=== PATIENT | male | born 1950 | race Caucasian/White ===

== ENCOUNTER 2023-02-28 12:52 | Outpatient (CLI) | payer MEDICARE, SELFPAY ==
--- NOTE | 2023-02-28 13:00 | RT.EKG_ITS ---
APPROVED REPORT Exam: Resting ECG Reason for Exam: ASCVD Patient Location: O HR:93 bpm ECG Measurements Heart Rate 93 AXIS MO [id number] P [id number] QRSd 111 QRS -50 QT 380 T 46 QTc 473 Conclusion Atrial fibrillation...V-rate 72-121, irreg A-activity Left anterior fascicular block...axis(240,-40), init forces inf
== END 2023-02-28 12:53 | disposition home or self-care (01) ==
LOC: DI.CARD 13:01
PROVIDERS: PCP Neuromusculoskeletal Medicine & OMM; Referring Provider Neuromusculoskeletal Medicine & OMM; Visit Provider Internal Medicine Cardiovascular Disease
DX: I25.10 Atherosclerotic heart disease of native coronary artery without angina pectoris (principal)
CPT/HCPCS: 93010

== ENCOUNTER → 2023-02-28 12:52 | Outpatient (BNVA) | payer MEDICARE, SELFPAY | PROVIDERS: PCP Neuromusculoskeletal Medicine & OMM; Referring Provider Neuromusculoskeletal Medicine & OMM; Visit Provider Internal Medicine Cardiovascular Disease | DX: Z95.5 Presence of coronary angioplasty implant and graft (principal); I25.2 Old myocardial infarction; I25.10 Atherosclerotic heart disease of native coronary artery without angina pectoris | CPT/HCPCS: 93005; 99203 ==

== ENCOUNTER 2023-03-14 07:53 | Outpatient (CLI) | payer MEDICARE, SELFPAY ==
--- NOTE | 2023-03-14 07:45 | RT.EKG_ITS ---
APPROVED REPORT Exam: Resting ECG Reason for Exam: CP Patient Location: O HR:98 bpm ECG Measurements Heart Rate 98 AXIS IA [id number] P [id number] QRSd 106 QRS -61 QT 363 T 36 QTc 464 Conclusion Atrial fibrillation...V-rate 72-125, irreg A-activity LAD, consider left anterior fascicular block...axis(240,-40), S>R II III aVF
== END 2023-03-14 07:54 | disposition home or self-care (01) ==
LOC: DI.CARD 07:54
PROVIDERS: PCP Family Medicine; Visit Provider Internal Medicine Cardiovascular Disease
DX: I25.10 Atherosclerotic heart disease of native coronary artery without angina pectoris (principal); I48.20 Chronic atrial fibrillation, unspecified
CPT/HCPCS: 93010

== ENCOUNTER → 2023-03-14 13:49 | Outpatient (BNVA) | payer MEDICARE, SELFPAY | PROVIDERS: PCP Family Medicine; Referring Provider Family Medicine; Visit Provider Internal Medicine Cardiovascular Disease | DX: I25.2 Old myocardial infarction (principal); I10 Essential (primary) hypertension; Z79.01 Long term (current) use of anticoagulants; I25.10 Atherosclerotic heart disease of native coronary artery without angina pectoris; I48.20 Chronic atrial fibrillation, unspecified | CPT/HCPCS: 93005; 99214 ==

== ENCOUNTER → 2023-03-27 02:16 | Outpatient (CLI) | payer MEDICARE, SELFPAY ==
--- NOTE | 2023-03-27 07:15 | DI.NM_ITS ---
APPROVED REPORT Exam: Pharmacologic Patient Location: In-Patient Room/Bed: Stress Nurse: Juana Mancuso RN Ordering Provider:JORJE HARO, Contact Number: BMI: 29.14 Baseline Rhythm: Atrial Fibrillation Indications: CAD, Angina, ASCVD Medical History Medical History: Former smoker, NSTEMI, CAD, HTN, Afib, HLD, HTN, DM, CKD, ASCVD Cardiac Medications: Amlodipine, apixiban, prednisone, aspirin, albuterol, atorvastatin, vitD3, clopi dogrel, ferrous gluconate, isosorbide mononitrate, pantoprazole, furosemide, metoprolol succinate Allergies: Codeine Cardiac Risk Factors: CVD, HTN, HLD, DM, former smoker Previous Cardiac Procedures: DAVIAN to LAD Pretest Chest Pain Characteristics: none Exercise History: Sedentary Physical Disabilities: none Lung Sounds: Clear to auscultation Heart Sounds: Irregular Stress Test Details Test: Pharmacologic stress was paired with low level exercise. Nuclear Acquisition: Rest Tc-99m/Stress Tc-99m 1 day Rest Isotope: Tc-99m Sestamibi. Dose: 10 Date: 03/27/2023 Injection Time: 0845 Stress Isotope: Tc-99m Sestamibi. Dose: 30 Date: 03/27/2023 Injection Time: 1010 HR Resting HR Supine: 87 bpm Max Heart Rate (APMHR): 148.139201 bpm Resting HR Standin bpm Target HR (85% APMHR): 125.707767 bpm Max HR Achieved: 135 bpm % of APMHR: 91.22 Recovery HR: 102 bpm BP Resting BP Supine: 160/84 mmHg Resting BP Standin/70 mmHg Max BP: 160/84 mmHg Recovery BP: 160/84 mmHg ECG Resting ECG: Atrial Fibrillation Ectopy: none Stress ECG: Atrial Fibrillation ST Change: No significant ST segment changes noted Arrhythmia: None Recovery ECG: Atrial Fibrillation Recovery ST Change: No significant ST segment changes noted Recovery Arrhythmia: None Clinical Rate Pressure Product: 27106 Stress ECG Conclusion 1. Resting electrocardiogram showed atrial fibrillation, poor R wave progression 2. Patient underwent testing using a combination of pharmacologic stress with regadenoson and low-lev el exercise 3. Peak heart rate achieved was 91% of predicted for age 4. There was no electrocardiographic evidence of myocardial ischemia 5. Atrial fibrillation was present throughout 6. See MPI report Stress Test Summary STAGE HR BP SpO2 Symptoms NOTES Supine 87 160/84 Standing 105 134/70 1 min post Lexiscan injection 110 HARPER blood pressure at this time, unable to hear 3 min post Lexiscan injection 112 128/68 96 6 min post Lexiscan injection 102 160/78 Pharmacological testing was paired with low level exercise at 1.0MPH and 0% grade, Lexiscan was injec nusrat at 2:00 minutes into exercise. MPI Conclusion Myocardial perfusion is normal without ischemia or evidence of prior infarction Calculated EF is 37% but visually appears within the range of normal, no wall motion abnormalities Radiologist Interpretation Radiologist agrees with Cork Insulator's Interpretation. Radiologist Interpretation by: David Styles MD Interpretation Date/Time: 03/27/2023 18:11:32
[2023-03-27] MEDS: Regadenoson 0.4 MG/5 ML SYR IVP (10:15)
== END ==
PROVIDERS: PCP Family Medicine; Visit Provider Internal Medicine Cardiovascular Disease
DX: I25.10 Atherosclerotic heart disease of native coronary artery without angina pectoris (principal)
CPT/HCPCS: 78452; 93016; 93018; 93017; J2785

== ENCOUNTER → 2023-04-20 09:37 | Outpatient (BNVA) | payer MEDICARE, SELFPAY | PROVIDERS: PCP Family Medicine; Referring Provider Neuromusculoskeletal Medicine & OMM; Visit Provider Internal Medicine Interventional Cardiology | DX: I25.10 Atherosclerotic heart disease of native coronary artery without angina pectoris (principal); I48.20 Chronic atrial fibrillation, unspecified; I10 Essential (primary) hypertension | CPT/HCPCS: 99213 ==

== ENCOUNTER → 2023-06-19 09:32 | Outpatient (BNVA) | payer MEDICARE, SELFPAY | PROVIDERS: PCP Neuromusculoskeletal Medicine & OMM; Visit Provider Internal Medicine Cardiovascular Disease | DX: I48.20 Chronic atrial fibrillation, unspecified (principal); D64.9 Anemia, unspecified; I25.2 Old myocardial infarction | CPT/HCPCS: 99213 ==

== ENCOUNTER → 2023-07-24 13:21 | Outpatient (BNVA) | payer MEDICARE, SELFPAY | PROVIDERS: PCP Neuromusculoskeletal Medicine & OMM; Referring Provider Family Medicine; Visit Provider Student in an Organized Health Care Education/Training Program | DX: M17.11 Unilateral primary osteoarthritis, right knee (principal); M70.62 Trochanteric bursitis, left hip; M47.816 Spondylosis without myelopathy or radiculopathy, lumbar region | CPT/HCPCS: 20610; 99213; J1040 ==

== ENCOUNTER → 2023-08-22 08:23 | Outpatient (BNVA) | payer MEDICARE, SELFPAY | PROVIDERS: PCP Neuromusculoskeletal Medicine & OMM; Referring Provider Neuromusculoskeletal Medicine & OMM | DX: M17.11 Unilateral primary osteoarthritis, right knee (principal); M70.62 Trochanteric bursitis, left hip; M47.816 Spondylosis without myelopathy or radiculopathy, lumbar region | CPT/HCPCS: 20610; J7318 ==

== ENCOUNTER → 2023-10-05 11:38 | Outpatient (CLI) | payer MEDICARE, SELFPAY ==
--- NOTE | 2023-10-05 11:30 | DI.MRI_ITS ---
Exam(s) MR LOWER JOINT RT WO EXAM: MR LOWER JOINT RT WO CLINICAL HISTORY: right knee pain M17.11 OSTEOARTHRITIS RT KNEE. TECHNIQUE: Multiplanar multisequence MRI was performed. COMPARISON: CR XR KNEE 3V RT from 05/12/2023 FINDINGS: BONES: There is no fracture or contusion pattern. JOINTS: There is loss of the articular cartilage overlying the lateral femoral condyle and the latera l tibial plateau and the lateral femoral tibial joint. There is marrow edema seen in the lateral tib ial plateau and the lateral femoral condyle. There osteophytes arising from the lateral femoral tibi al joint. There is chondromalacia seen in the patella. There is a small amount of fluid in the join t space. The collection is multiloculated in the infrapatellar region. TENDONS: Extensor mechanism: Unremarkable. Medial retinaculum: Unremarkable. Lateral retinaculum: Unremarkable. Popliteus: Unremarkable. MUSCLES: There is moderate muscular fatty atrophy present. MENISCI: There is decrease in size of the body and posterior horn of the medial meniscus. This likel y represents chronic tear and degeneration. The lateral meniscus is unremarkable. SOFT TISSUES: There is a multiloculated heterogeneous fluid collection in the posterior lateral soft tissues. It is incompletely imaged on this examination. It measures at least 3.7 cm AP by 6.1 cm tr ansverse by at least 7.4 cm craniocaudad. There is edema seen in the soft tissues in the knee partic ularly posteriorly. A very tiny popliteal cyst is present. This does not communicate with the large r fluid collection. LIGAMENTS: Anterior Cruciate: Unremarkable. Posterior Cruciate: Unremarkable. Medial Collateral:Unremarkable. Lateral Collateral: Unremarkable. OTHER: IMPRESSION: 1. Degenerative changes seen in the knee particularly the lateral femoral tibial joint. 2. Decrease in size of the body and posterior horn of the medial meniscus. This likely reflects occ med physician ricky tear and degeneration. 3. Multiloculated 3.7 x 6.1 by at least 7.4 cm fluid collection in the posterolateral soft tissues. It is incompletely imaged on this examination. A follow-up examination of the lower extremity to inc lude the entire lesion without and with contrast is recommended for further evaluation. 4. No evidence of a ligament tear. DATA REPOSITORY:
== END ==
PROVIDERS: PCP Neuromusculoskeletal Medicine & OMM; Visit Provider Student in an Organized Health Care Education/Training Program
DX: M17.11 Unilateral primary osteoarthritis, right knee (principal)
CPT/HCPCS: 73721

== ENCOUNTER → 2023-10-17 10:36 | Outpatient (BNVA) | payer MEDICARE, SELFPAY | PROVIDERS: PCP Neuromusculoskeletal Medicine & OMM; Visit Provider Internal Medicine Cardiovascular Disease | DX: I48.20 Chronic atrial fibrillation, unspecified (principal); I25.10 Atherosclerotic heart disease of native coronary artery without angina pectoris | CPT/HCPCS: 99213 ==

== ENCOUNTER → 2023-10-19 09:54 | Outpatient (BNVA) | payer MEDICARE, SELFPAY | PROVIDERS: PCP Neuromusculoskeletal Medicine & OMM; Referring Provider Neuromusculoskeletal Medicine & OMM; Visit Provider Student in an Organized Health Care Education/Training Program | DX: M17.11 Unilateral primary osteoarthritis, right knee (principal) | CPT/HCPCS: 99213 ==

== ENCOUNTER 2023-11-29 14:27 | Outpatient (CLI) | payer MEDICARE, SELFPAY ==
--- NOTE | 2023-11-29 06:00 | DI.RAD_ITS ---
Exam(s) XR PAIN CLINIC LUMBAR SP 2V EXAM: XR PAIN CLINIC LUMBAR SP 2V CLINICAL HISTORY: DX:Lumbar Radiculopathy. TECHNIQUE: Fluoroscopy was provided for the referring physician for guidance with performing pain cl inic injection procedure. COMPARISON: No exams were available for comparison FINDINGS: Please see procedure note for details. Fluoro time: 19 seconds RADIATION DOSE DELIVERED: Devanr=5.94 mGy
[2023-11-29 14:34] VITALS: BP 122/69; PULSE 78; RESP 20; TEMP 36.6; O2SAT 96
[2023-11-29 15:03] VITALS: PULSE 88; RESP 15; O2SAT 96
[2023-11-29 15:10] VITALS: PULSE 93; RESP 16; O2SAT 99
[2023-11-29 15:13] VITALS: BP 155/90; PULSE 67
[2023-11-29] MEDS: methylPREDNISolone ACETATE 80 MG/ML VIAL IJ (15:18)
[2023-11-29] MEDS: Omnipaque 240 MG/ML 50 ML BTL IJ (15:18)
[2023-11-29] MEDS: Epidural Tray 1 EACH MC (15:19)
--- NOTE | 2023-12-04 08:41 | PDOC.PAIN ---
Date of service: 11/29/23 Time of Service: 15:20 Pain Managment Procedure Note Procedure Note Procedure Note: PROCEDURE NOTE LUMBAR EPIDURAL STEROID INJECTION Date of Service: November 29, 2023 Patient:Avtar Tanner? Provider: Cristobal Landa DO, MPH Avtar Elizondo has been referred to the [facility] for a lumbar epidural steroid injection. Pre-operative diagnosis: Lumbosacral Radiculopathy Post-operative diagnosis: Same Pre-Procedure Pain: VAS= 8 /10 Comments: He is holding the Eliquis and Plavix as his prescriber has instructed. Avtar was interviewed and the medical record was reviewed.? There were no medical, pharmacologic, radiographic or other structural contraindications to attempting fluoroscopically guided Lumbar epidural steroid injection.? Risks, potential side effects, indications, and potential benefits of the procedure were reviewed with Avtar.? Questions and concerns were addressed.? After it was clear that Avtar was fully informed about the procedure, the printed consent form was signed by the patient and myself.? Avtar was placed in the prone position on the fluoroscopy table and automated blood pressure cuff and pulse oximeter applied. The skin entry point for entering/approaching the epidural space for the lumbar epidural steroid injection was marked. Following thorough chlorhexadine preparation of the skin and draping and 1% lidocaine infiltration of the skin entry point and subcutaneous tissues, an 18 gauge Touhy needle was placed and advanced under fluoroscopic guidance and with loss of resistance technique into the L5-S1 epidural space. Needle tip placement and depth were aided and confirmed by fluoroscopy. There was no paresthesia or return of blood or CSF through the needle. 1 mls of Omnipaque 240 was injected with clear epidural spread confirmed with fluoroscopy. 80 mg of Depo-Medrol was? injected. This was followed by 1 ml of preservative-free normal saline to flush the steroid out of the needle. There was no unusual discomfort expressed by Avtar. The needle was withdrawn without difficulty. (49 mls of Omnipaque was wasted) Avtar was observed and was without hemodynamic, neurologic, or allergic reactions.? Fluoroscopic images were digitally archived. Avtar's vital signs were stable throughout the procedure and were as recorded in nursing records. Follow up plans and appointments were discussed with Avtar. Post procedure instruction was given as documented in nursing records and having met discharge criteria Avtar was discharged from the [facility]. COMMENTS: No apparent complications. Post-procedure pain: VAS= 1/10. Avtar to contact [facility] as needed. If at least 50% improvement in pain and/or function for at least 3 months is achieved, this procedure can be repeated. I personally performed this entire procedure. CRISTOBAL LANDA DO, MPH ABPMR-subspecialty board certification in Pain Medicine [facility]
== END 2023-11-29 14:28 | disposition home or self-care (01) ==
LOC: PC 14:27
PROVIDERS: PCP Neuromusculoskeletal Medicine & OMM; Visit Provider Preventive Medicine Occupational Medicine
DX: M54.16 Radiculopathy, lumbar region (principal); M54.50 Low back pain, unspecified
CPT/HCPCS: 62323; 72100; J1010; Q9967

== ENCOUNTER 2024-01-05 10:19 | Outpatient (CLI) | payer MEDICARE, SELFPAY ==
[2024-01-05 10:25] VITALS: BP 125/87; PULSE 68; RESP 18; TEMP 36.7; O2SAT 97
[2024-01-05 10:59] VITALS: O2SAT 95
[2024-01-05 11:00] VITALS: O2SAT 97
[2024-01-05 11:10] VITALS: O2SAT 98
--- NOTE | 2024-01-05 11:16 | PDOC.PAIN ---
Date of service: 01/05/24 Time of Service: 11:16 Pain Managment Procedure Note Procedure Note Procedure Note: PROCEDURE NOTE RIGHT GENICULAR NERVE BLOCKS Date of Service: January 05, 2024 Patient: Avtar Elizondo Provider: Cristobal Cook DO, MPH Avtar Eilzondo has been referred to the [facility] for Right genicular nerve block. Pre-operative diagnosis: Pain in right knee M25.561 Post-operative diagnosis: Same Pre-Procedure Pain: VAS=8/10 COMMENTS: I previously evaluated him in the office. PROCEDURE: 1. Block of the Superolateral genicular branch from the vastus lateralis 2. Block of the Superomedial genicular branch from the vastus medialis 3. Block of the Inferomedial genicular branch from the saphenous nerve 4. Block of the Terminal branch of the nerve vastus intermedius Avtar was interviewed and the medical record reviewed. There were no medical, pharmacologic, radiographic or other structural contraindications to attempting fluoroscopically guided Right genicular nerve block. Risks and potential side effects as well as potential benefit of the procedure were reviewed with Avtar Elizondo , and the patient's voiced concerns were addressed. After I believed that the patient was completely informed, the printed consent form was signed. Standard time-out procedure was performed. After a thorough Chlorhexadine preparation of the skin and draping the skin entry points for approaching Right superolateral genicular nerve, the superomedial genicular nerve, nerve of the vastus intermedius and the inferomedial genicular was identified under the most advantageous fluoroscopic view and marked. Next, 3.5 25G spinal needle was advanced to os at the location of the specific nerve root using fluoroscopic guidance. Next 0.5 cc of 0.5% Bupivacain was injected at each site. There was no unusual discomfort expressed by Avtar. The needles were withdrawn without difficulty. Avtar was observed and was without hemodynamic, neurologic, or allergic reactions.? Fluoroscopic images were digitally archived. Avtar's vital signs were stable throughout the procedure and were as recorded in the docflowsheet by the nursing staff. If given, dosages of intravenous drugs for anxiolysis and analgesia were documented in MAR. Follow up plans and appointments were discussed. Avtar was instructed to keep careful note of how the usual pain was modified by these injections. Specifically, Avtar was asked to keep a pain diary for the next 4 hours using a numeric pain scale of 0-10 and report these results. Post procedure instruction was given as documented in nursing documentation and having met discharge criteria, Avtar was discharged from the [facility]. COMMENTS: No apparent complications. Post-procedure pain: VAS= 0/10. Avtar will call back with 0-4 hour post-procedure pain scores. I personally completed the entire procedure. CRISTOBAL COOK DO, MPH ABPM&R - Subspecialty board certification in Pain Medicine [facility]
[2024-01-05] MEDS: Omnipaque 240 MG/ML 50 ML BTL IJ (11:24)
[2024-01-05] MEDS: Bupivacaine 0.5% Pres-Free 10 ML VIAL IJ (11:24)
--- NOTE | 2024-01-05 11:24 | DI.RAD_ITS ---
Exam(s) XR PAIN CLINIC FLUORO JOINT IN EXAM: XR PAIN CLINIC FLUORO JOINT IN CLINICAL HISTORY: Dx: Osteoarthritis of the knee TECHNIQUE: 2D and realtime digital imaging was performed. CONTRAST MATERIAL: Refer to procedure report. COMPARISON: No exams were available for comparison FINDINGS: Fluoroscopy was provided for Dr. Cook during the performance of a right genicular nerve block. Plea se refer to the procedure report for complete details. Ka,r=2.68 mGy IMPRESSION: RADIATION DOSE DELIVERED: 0.0 [id number] 0
[2024-01-05] MEDS: Nerve Block Tray 1 EACH MC (11:25)
== END 2024-01-05 10:20 | disposition home or self-care (01) ==
LOC: PC 10:19
PROVIDERS: PCP Neuromusculoskeletal Medicine & OMM; Visit Provider Preventive Medicine Occupational Medicine
DX: M25.561 Pain in right knee (principal)
CPT/HCPCS: 64454; 77002; J0665; Q9967

== ENCOUNTER 2024-02-08 10:02 | Outpatient (CLI) | payer MEDICARE, SELFPAY ==
[2024-02-08] VITALS (9 sets, daily range): BP systolic 103–159; BP diastolic 58–99; PULSE 64–95; RESP 9–20; TEMP 36.7; O2SAT 97–100
--- NOTE | 2024-02-08 06:00 | DI.RAD_ITS ---
Exam(s) XR PAIN CLINIC FLUORO JOINT IN EXAM: XR PAIN CLINIC FLUORO JOINT IN CLINICAL HISTORY: DX: Osteoarthritis of the Right Knee TECHNIQUE: 2D and realtime digital imaging was performed. CONTRAST MATERIAL: Refer to procedure report. COMPARISON: No exams were available for comparison FINDINGS: Fluoroscopy was provided for Dr. Cook during the performance of a right genicular radiofrequency abl ation. Please refer to the procedure report for complete details. Ka,r=3.14 mGy IMPRESSION: RADIATION DOSE DELIVERED: 0.0 0.0 0
--- NOTE | 2024-02-08 10:52 | PDOC.PAIN_ITS ---
Date of service: 02/08/24 Time of Service: 10:52 Pain Managment Procedure Note Procedure Note Procedure Note: PROCEDURE NOTE RIGHT GENICULAR NERVE RADIOFREQUENCY ABLATION Date of Service: February 08, 2024 Patient: Avtar Elizondo Provider: Janes Landa DO, MPH Avtar Elizondo has been referred to the [facility] for Right genicular nerve radiofrequency ablation with the [employer] machine. Pre-operative diagnosis: Pain in right knee M25.561 Post-operative diagnosis: Same Pre-Procedure Pain: VAS=6/10 Comments: Previous genicular nerve blocks to the Right knee. PROCEDURE: 1. Superolateral genicular branch from the vastus lateralis 2. Superomedial genicular branch from the vastus medialis 3. Inferomedial genicular branch from the saphenous nerve 4. Terminal branch of the nerve vastus intermedius Avtar was interviewed and the medical record reviewed. There were no medical, pharmacologic, radiographic or other structural contraindications to attempting fluoroscopically guided Right genicular nerve radiofrequency ablation. Risks and potential side effects as well as potential benefit of the procedure were reviewed with Avtar Elizondo , and the patient's voiced concerns were addressed. After I believed that the patient was completely informed, the printed consent form was signed. Standard time-out procedure was performed. Avtar Elizondo was brought into brought to the procedure room and placed on the fluoroscopy table in a comfortable supine position and automated blood pressure cuff and pulse oximeter applied. A grounding pad was placed on the right ankle. The place for needle placement was obtained by manual palpation with radiographic confirmation. The skin entry points for approaching Right superolateral genicular nerve, the superomedial genicular nerve, nerve of the vastus intermedius and the inferomedial genicular was identified under the most advantageous fluoroscopic view and marked. Following thorough Chlorhexadine preparation of the skin and draping, 1% lidocaine infiltration of the skin entry point and subcutaneous tissues was accomplished using a 1.5 25G needle. Next, the 17G 50 mm radi ofrequency cannula needle with a 4mm active tip was advanced to os at the location of the specific nerve roots (4) using fluoroscopic guidance. Next, motor testing was performed and no abnormal findings were found. Next, 1 cc of 2% Lidocaine was injected at each site after negative aspiration. The lesion was then created with 80 degrees Celsius for 2 minutes and 30 seconds each. 1/4 cc of Depo-Medrol (40 mg/cc) was then injected at each site followed by 1 cc of 0.5% Bupivacaine as the needle was withdrawn. There was no unusual discomfort expressed by Avtar. The needles were withdrawn without difficulty. Avtar was observed and was without hemodynamic, neurologic, or allergic reactions.? Fluoroscopic images were digitally archived. Avtar's vital signs were stable throughout the procedure and were as recorded in the docflowsheet by the nursing staff. If given, dosages of intravenous drugs for anxiolysis and analgesia were documented in MAR. POST PROCEDURE EVALUATION: IMPRESSION: 1. Medication given is documented in the MAR 2. Follow up plan: Avtar to contact [facility] as needed. This procedure may be repeated if the patient achieves at least 50% improvement in pain and/or function for at least 6 months. 3. Estimated Blood Loss: <5ml 4. Fluoroscopy time: Documented in the EMR Follow up plans and appointments were discussed with Avtar. Post procedure instruction was given as documented in nursing documentation and having met discharge criteria, Avtar was discharged from the [facility]. COMMENTS: No apparent complications. Post-procedure pain: VAS= 1/10. White WJ1, Keerthi SJ, Rogelio JG, Deo JG, Jovany SCHULTZ, Park PH, [place] JW. Radiofrequency treatment relieves chronic knee osteoarthritis pain: a double-blind randomized controlled trial. Pain. 2010;152(3):481-7. doi: 10.1016/j.pain.2010.09.029. Rosa S1, Zander ON2, Lenadro Y3, ?zl?jneny P2, Diego U1, Erik ?m?rl? I. Which one is more effective for the clinical treatment of chronic pain in knee osteoarthritis: radiofrequency neurotomy of the genicular nerves or intra- articular injection? Int J Rheum Dis. 2016 Dec 03. I personally completed the entire procedure. JANES LANDA DO, MPH ABPM&R - Subspecialty board certification in Pain Medicine [facility] [facility]
[2024-02-08] MEDS: fentaNYL 100 MCG/2 ML VIAL IVP ×2 (11:20→11:25)
[2024-02-08] MEDS: Midazolam 2 MG/2 ML VIAL IVP (11:20)
[2024-02-08] MEDS: Bupivacaine 0.5% Pres-Free 10 ML VIAL IJ (12:01)
[2024-02-08] MEDS: Lidocaine 2% Multi-Dose 20 ML VIAL IJ (12:01)
[2024-02-08] MEDS: methylPREDNISolone ACETATE 40 MG/ML VIAL IJ (12:01)
[2024-02-08] MEDS: Nerve Block Tray 1 EACH MC (12:02)
== END 2024-02-08 10:03 | disposition home or self-care (01) ==
LOC: PC 10:02
PROVIDERS: PCP Neuromusculoskeletal Medicine & OMM; Visit Provider Preventive Medicine Occupational Medicine
DX: M17.11 Unilateral primary osteoarthritis, right knee (principal)
CPT/HCPCS: 64624; 77002; J0665; J1010; J2003; J2250; J3010

== ENCOUNTER → 2024-02-19 10:36 | Outpatient (BNVA) | payer MEDICARE, SELFPAY | PROVIDERS: PCP Neuromusculoskeletal Medicine & OMM; Visit Provider Internal Medicine Cardiovascular Disease | DX: I48.20 Chronic atrial fibrillation, unspecified (principal); I25.10 Atherosclerotic heart disease of native coronary artery without angina pectoris | CPT/HCPCS: 99214 ==

== ENCOUNTER 2024-03-07 14:33 | Outpatient (CLI) | payer MEDICARE, SELFPAY ==
--- NOTE | 2024-03-07 13:35 | DI.RAD_ITS ---
Exam(s) XR KNEE RT 1V XR STANDING ALIGNMENT EXAM: XR STANDING ALIGNMENT and XR knee RT 1 V CLINICAL HISTORY: TKR Planning. TECHNIQUE: 2D digital imaging was performed. Five images were obtained. COMPARISON: CR XR KNEE 3V RT from 05/12/2023 FINDINGS: BONES: The hips are well maintained. In the right knee, marked degenerative changes are present part icularly in the lateral femoral tibial joint where there is [id number]. Small osteophytes are seen at the posterior patella. There is a small joint effusion. In the left knee, there is mild narrowi ng and spurring in the lateral femoral tibial joint. Portions of the left knee are obscured by measu rement equipment. The ankles are well maintained.There is no significant leg length discrepancy. SOFT TISSUE: Vascular calcifications are present. IMPRESSION: Marked degenerative changes in the right knee. Mild degenerative changes seen in the left knee. DATA REPOSITORY: RADIATION DOSE DELIVERED:
--- NOTE | 2024-03-07 13:35 | DI.RAD_ITS ---
Exam(s) XR KNEE RT 1V XR STANDING ALIGNMENT EXAM: XR STANDING ALIGNMENT and XR knee RT 1 V CLINICAL HISTORY: TKR Planning. TECHNIQUE: 2D digital imaging was performed. Five images were obtained. COMPARISON: CR XR KNEE 3V RT from 05/12/2023 FINDINGS: BONES: The hips are well maintained. In the right knee, marked degenerative changes are present part icularly in the lateral femoral tibial joint where there is [id number]. Small osteophytes are seen at the posterior patella. There is a small joint effusion. In the left knee, there is mild narrowi ng and spurring in the lateral femoral tibial joint. Portions of the left knee are obscured by measu rement equipment. The ankles are well maintained.There is no significant leg length discrepancy. SOFT TISSUE: Vascular calcifications are present. IMPRESSION: Marked degenerative changes in the right knee. Mild degenerative changes seen in the left knee. DATA REPOSITORY: RADIATION DOSE DELIVERED:
== END 2024-03-07 14:34 | disposition home or self-care (01) ==
LOC: DIORS 14:33
PROVIDERS: PCP Neuromusculoskeletal Medicine & OMM; Visit Provider Physician Assistant
DX: M17.11 Unilateral primary osteoarthritis, right knee (principal); Z01.818 Encounter for other preprocedural examination
CPT/HCPCS: 73560; 77073

== ENCOUNTER 2024-03-19 07:08 | Observation (INO) | payer MEDICARE, SELFPAY ==
[2024-03-19] VITALS (37 sets, daily range): BP systolic 102–185; BP diastolic 65–100; PULSE 65–102; RESP 0–19; TEMP 36–36.7; O2SAT 94–100; BMI 25.7
--- NOTE | 2024-03-19 07:15 | W.PM.DSUDISC ---
Discharge Plan Disposition Patient Disposition: Home Condition: Good Discharge Details Reason For Visit: Right knee DJD Attending Provider: Raul Sanchez Primary Care Provider: Monster Clark [place] Meds and New Rx's Prescriptions: New acetaminophen 500 mg tablet 1,000 mg PO Q8H PRN Qty: 90 0RF Rx Instructions: Take two tablets up to every 8 hours as needed for pain celecoxib [Celebrex] 200 mg capsule 200 mg PO BID PRNQty: 60 0RF Rx Instructions: Take one tablet twice daily for pain and inflammation docusate sodium [Colace] 100 mg capsule 100 mg PO BID Qty: 30 0RF pantoprazole 40 mg tablet,delayed release (DR/EC) 40 mg PO DAILY Qty: 14 0RF dexamethasone 4 mg tablet 4 mg PO DAILY Qty: 2 0RF Rx Instructions: Take one tablet once daily for two days gabapentin 300 mg capsule 300 mg PO QHS Qty: 14 0RF Rx Instructions: Take one tablet at bedtime oxycodone 5 mg tablet 5 mg PO Q6H PRNQty: 24 0RF Rx Instructions: Take one tablet up to every 6 hours as needed for severe postoperative pain Continued atorvastatin 40 mg tablet 40 mg PO DAILY cholecalciferol (vitamin D3) 25 mcg (1,000 unit) capsule 25 mcg PO DAILY Eliquis 5 mg tablet 5 mg PO BID Qty: 180 3RF furosemide 20 mg tablet 20 mg PO DAILY Qty: 90 3RF gabapentin 100 mg capsule 100 mg PO BID cyclobenzaprine 5 mg tablet 5 mg PO BID metoprolol succinate 50 mg tablet extended release 24 hr 100 mg PO DAILY Qty: 180 3RF isosorbide mononitrate 120 mg tablet extended release 24 hr 120 mg PO DAILY Qty: 90 3RF losartan 25 mg tablet 25 mg PO DIRECTED Patient Comments: TAKE ONE TABLET BY MOUTH EVERY DAY Discontinued oxycodone 5 mg tablet 5 mg PO BID PRN Discharge Instructions Additional Instructions: Total Knee Discharge Instructions Activity: The most important activity is to walk and to work on gentle motion (both flexion and extension). You should try to take short walks a few times a day. It is important that when resting you work on keeping the knee straight. Avoid putting a pillow behind the knee as this will encourage flexion. Work on range of motion exercises as provided by Physical Therapy. - Start outpatient physical therapy within 2 weeks. - You should wear the CHRYSTAL hose on both legs for 2 weeks. You may remove these at night. You may also use any compression sock in place of the CHRYSTAL hose. - Utilize [employer] to review exercises, see videos on exercises and obtain basic information pertaining to your surgery and your recovery. Dressing: Remove the Prasanna wrap by 2 days after your surgery and put on the CHRYSTAL stocking given to you from the hospital. Keep the surgical dressing (underneath the PRASANNA wrap) in place for at least one week. After the first week it may be removed and replaced with light gauze and tape or nothing. The wound and dressing may get wet after 3 days but avoid soaking the dressing or otherwise it will need to be changed. Many people prefer covering the dressing with cling wrap (saran wrap) to minimize it from getting soaked. If it gets wet, just pat dry. If it starts to peel off then it will need to be changed. Medications: - You should take Tylenol and anti-inflammatory Celebrex as your primary pain control medications. If the Celebrex is too expensive or not covered, please call the office for another alternative (Advil/Ibuprofen or Naproxen/Aleve) - You have been prescribed a stronger pain medication Oxycodone for breakthrough pain, take as needed as prescribed. - You have also been prescribed a stomach acid reduction agent Pantoprozole to help reduce stomach acid and reflux. - You take Gabapentin at baseline - your bedtime dose has been increased to take 300 mg at night for restlessness and nerve pain. - You will resume your Eliquis tomorrow for DVT prevention. - You have also been prescribed Decadron to take to control post-operative nausea and pain. You will start this tomorrow. - If you have constipation you should take Colace (which has been prescribed) or Miralax (which is available [id number]). It takes most people 3-4 days to have a bowel movement. Follow-up: 2 weeks If you have any acute concerns or questions, please do not hesitate to contact the office at [phone]. You may contact Dr. Sanchez with any questions after hours through the hospital at [phone] or on his cell phone at [phone]. Referrals: Raul Sanchez MD [ [facility] STAFF PHYSICIAN] - Equipment/Supplies: Walker Activity:: Elevate Remove Dressings/Wound Care:: Do Not Remove Shower/Bathe:: Cover Diet:: As Tolerated Discharge Orders Discharge Orders: Discharge Order (Routine); Ordered 03/19/24 Ordered By: Shantell Collier
--- NOTE | 2024-03-19 08:39 | W.ANESPRE ---
General Info Date of Service Date Performed: 03/19/24 Height: 5 ft 11 in Weight: 83.461 kg Body Mass Index (BMI): 25.7 Surgical Procedure: Operation Date: 03/19/24 12:40 Proposed Procedure Side Surgeon p Knee Total Arthroplasty Right Raul Sanchez MD Meds Allergies and Home Medications Allergies Allergy/AdvReac Type Severity Reaction Status Date / Time codeine AdvReac Intermediate Skin Rash Verified 03/19/24 10:02 Home Medication ?Medication ?Instructions ?Recorded apixaban 5 mg tablet (Eliquis) 5 mg PO BID #180 tabs 02/28/23 atorvastatin 40 mg tablet 40 mg PO DAILY 02/28/23 cholecalciferol (vitamin D3) 25 25 mcg PO DAILY 02/28/23 mcg (1,000 unit) capsule furosemide 20 mg tablet 20 mg PO DAILY #90 tabs 03/14/23 metoprolol succinate 50 mg 100 mg (2 x 50 mg) PO DAILY #180 09/11/23 tablet,extended release 24 hr tabs isosorbide mononitrate 120 mg 120 mg PO DAILY #90 tabs 02/01/24 tablet,extended release 24 hr losartan 25 mg tablet 25 mg PO DIRECTED 02/08/24 cyclobenzaprine 5 mg tablet 5 mg PO BID 03/07/24 gabapentin 100 mg capsule 100 mg PO BID 03/07/24 acetaminophen 500 mg tablet 1,000 mg (2 x 500 mg) PO Q8H PRN 03/19/24 pain #90 tabs celecoxib 200 mg capsule (Celebrex) 200 mg PO BID PRN #60 caps 03/19/24 dexamethasone 4 mg tablet 4 mg PO DAILY #2 tabs 03/19/24 docusate sodium 100 mg capsule 100 mg PO BID #30 caps 03/19/24 (Colace) gabapentin 300 mg capsule 300 mg PO QHS #14 caps 03/19/24 oxycodone 5 mg tablet 5 mg PO Q6H PRN #18 tabs 03/19/24 pantoprazole 40 mg tablet,delayed 40 mg PO DAILY #14 tabs 03/19/24 release Current Visit Medications: Current Medications Generic Name Dose Route Start Last Admin Trade Name Freq PRN Reason Stop Dose Admin Acetaminophen 1,000 mg 03/19/24 06:00 Acetaminophen 500 Mg Tab PO 03/19/24 16:00 PREOP STEFANO Gabapentin 300 mg 03/19/24 06:00 Gabapentin 300 Mg Cap PO 03/19/24 16:00 PREOP STEFANO Hydromorphone HCl 0.25 mg 03/19/24 07:08 Hydromorphone 1 Mg/Ml Syr IVP 04/18/24 07:07 Q2H PRN PRN Ringer's Solution 1,000 mls @ 80 mls/hr 03/19/24 06:00 IV 04/17/24 23:59 INFUSION STEFANO Cefazolin Sodium/Dextrose 2 gm in 50 mls @ 100 mls/hr 03/19/24 06:00 Ancef Duplex IVPB 03/19/24 16:00 PREOP STEFANO Tranexamic Acid 1,000 mg/ 110 mls @ 660 mls/hr 03/19/24 06:00 Sodium Chloride IVPB 03/19/24 16:00 PREOP STEFANO Cefazolin Sodium/Dextrose 1 gm in 50 mls @ 100 mls/hr 03/19/24 08:00 Ancef Duplex IVPB 03/20/24 00:29 Q8H STEFANO IV Miscellaneous Supplies 1 each 03/19/24 06:00 Iv Access IV 04/17/24 23:59 DIRECTED STEFANO Oxycodone HCl 0 mg 03/19/24 07:08 Oxycodone 5 Mg Tab PO 04/18/24 07:07 Q3H PRN PRN Pain Sodium Chloride 0 ml 03/19/24 06:00 Normal Saline Flush 10 Ml Syr IV 04/17/24 23:59 PRN PRN Sodium Chloride 0 ml 03/19/24 06:00 Normal Saline 10 Ml Vial IJ 04/17/24 23:59 DIRECTED PRN Sterile Water 0 ml 03/19/24 06:00 Water,Injection,Sterile 10 Ml Vial IJ 04/17/24 23:59 DIRECTED PRN PFSH Active Problems Active Problems: Problem Status Onset Code Lumbar spinal stenosis Acute M48.061 Lumbar spondylosis Acute M47.816 Trochanteric bursitis of left hip Acute M70.62 Osteoarthritis of right knee Acute M17.11 Anemia Chronic D64.9 Sensorineural hearing loss (SNHL) of both ears Acute H90.3 Atrial fibrillation, chronic Acute I48.20 HTN (hypertension) with goal to be determined Acute I10 HLD (hyperlipidemia) Acute E78.5 Diabetes mellitus Chronic E11.9 CKD (chronic kidney disease) Chronic N18.9 ASCVD (arteriosclerotic cardiovascular disease) Acute I25.10 Allergic rhinitis due to allergen Acute J30.9 Sinusitis, maxillary, chronic Acute J32.0 Medical History Medical History Right knee pain Depression Overweight Former smoker quit 2017 after 50 years [facility] Coronary stent restenosis 02/17/23 [place] [facility] [place] for NSTEMI again and stent to LAD RH NSTEMI (non-ST elevated myocardial infarction) 02/13/23 w Stent to LAD 02/14/23 [place] [facility] [place] Tobacco Smoking/Tobacco Use Status: Former Tobacco Use Alcohol Alcohol Intake: current Alcohol intake frequency: a few times a week Alcohol type: beer Substance Use Substance use: Never Substance use type: does not use Vital Signs and Lab Results Vital Signs Most Recent Vital Signs in EMR: Temp Pulse Resp BP Pulse Ox 36.2 C L 89 19 172/79 H 98 03/19/24 10:06 03/19/24 10:06 03/19/24 10:06 03/19/24 10:06 03/19/24 10:06 Lab Results Blood Type / Crossmatch: No Data to Display Complete Blood Count: No Data to Display Complete Metabolic Panel: No Data to Display Liver Function Panel: No Data to Display Coagulation Panel: No Data to Display Cardiac Panel: No Data to Display Arterial Blood Gas: No Data to Display Venous Blood Gas: No Data to Display Pancreas Panel: No Data to Display Thyroid Panel: No Data to Display Infectious Disease: No Data to Display Blood Cultures: No Data to Display Toxicology Panel: No Data to Display Anesthesia Assessment and Plan Anesthesia History Personal History: No History of Anesthesia Complications Family History: No Family History of Anesthesia Complications Exercise Tolerance Exercise Tolerance: Unknown Cardiac & Pulmonary Exam Cardiac Exam: Normal S1/S2 Heart Sounds Pulmonary Exam: Clear Bilateral Breath Sounds Implantable Cardiac Device Does patient have a Pacemaker or an ICD?: No Airway Exam Known Difficult Airway: No Mallampati Class: 4 Mouth Opening: Narrow (< 3cm) Thyromental Distance: Less than 3 cm Neck Range of Motion: Limited ROM Neck Circumference: Normal Teeth Condition: Generalized Poor Dentition, Loose or Chipped and Edentulous (no upper) ASA Classification ASA Score: ASA 3 Emergency Case?: No NPO Status NPO Status: NPO Clears >2 hours, Solids >8 hours Anesthesia Plan Resuscitation Status: Full Code Anesthesia Technique: General Anesthesia Airway Planned: Endotracheal Tube Monitors Used: Standard Monitors Preoperative Comments:: 73 yo male for TKA. Sig PMHx: HTN (furosemide, losartan. checks BP at home and with a wrist cuff is in a normal range), afib (Eliquis - unclear on timing of last dose, metoprolol), CAD (isosorbide. LAD/RCA stent in 2022. Plavix - d/c'd , asn't been on for a few weeks, ASA. denies chest pain or SL nitro use) CKD (GFR 40, creat 1.7), DM2 (diet controlled), Low back pain/stenosis (states back is a big concern of his), former smoker, occ EtOh. EKG: afib. Stress MPI: normal without ischemia/infarction, EF 37%. ECHO: LVEF 45-50%, technically diff. Previous Anes: - [facility]/shoulder, two hand mask - easier with relaxation, mac 4 grade 2.
[2024-03-19] MEDS: Acetaminophen 500 MG TAB 1000 MG PO ×2 (10:40→19:47)
[2024-03-19] MEDS: Gabapentin 300 MG CAP PO (10:40)
[2024-03-19] MEDS: Normal Saline 1,000 ML 30 ML IV (10:41)
[2024-03-19] MEDS: ceFAZolin 2 GM/50 ML BAG IVPB (12:08)
--- NOTE | 2024-03-19 14:08 | W.ANESPOSTOP ---
Postoperative Evaluation Date, Time and Location Date Performed: 03/19/24 Time Performed: 14:08 Patient Location: PACU Vital Signs Most Recent Imported Vital Signs: Most Recent Vital Signs Temp Pulse Resp BP Pulse Ox 36.3 C L 65 12 136/65 100 03/19/24 13:59 03/19/24 13:52 03/19/24 13:52 03/19/24 13:52 03/19/24 13:52 Pain Score Most Recent Pain Score: Most Recent Pain Score Pain Level 0 03/19/24 13:59 Assessment Mental Status: Awake (Alert & Oriented to Patient Baseline) Airway and Respiratory Function: Patent airway with normal (patient baseline) respiratory exam Cardiovascular Function: Hemodynamically Stable Hydration Status: Adequately Hydrated Nausea & Vomiting: No Nausea or Vomiting Pain: Pain is tolerable per patient Peripheral Nerve Block: Regional nerve block not resolved at time of post operative discharge
--- NOTE | 2024-03-19 15:20 | W.PM.OP ---
Operative Note Operative Note PRE-OP DIAGNOSIS: Right knee osteoarthritis POST-OP DIAGNOSIS: same PROCEDURE: Right Total Knee Replacement SURGEON: Raul Sanchez [facility] SUPERVISOR: Shantell Collier ANESTHESIA TYPE: Spinal Refer to Anesthesia Record ESTIMATED BLOOD LOSS: 200 PATHOLOGY: none sent TOURNIQUET TIME: 0 COMPLICATIONS: None Patient was transported to: PACU Patient's condition: stable Implants: 1. Depuy Attune Cementless Cruciate Retaining Femoral Component, Size 6 2. Depuy Attune Cementless Fixed Bearing Tibial Component, Size 7 3. Depuy Attune 6x6mm CR/FB Poly 4. Depuy Attune Patellar Component, Size 38 Indications: I have seen Krunal in clinic for symptoms of knee arthritis, confirmed with radiographic findings. He has exhausted nonoperative methods and was having significant limitations in daily function and desired better function and less pain. I discussed the technical details of a knee replacement. I explained the risks of the procedure to include, but not limited to, bleeding, infection, pain, stiffness, fracture, damage to nerves and vessels, damage to muscles and tendons, loosening, need for repeat procedure, blood clot and cardiopulmonary demise. Despite these risks, Krunal elected to proceed. Findings: There was significant signs of arthritis throughout the knee down to bone with notable crystal deposits throughout. Procedure Description: Krunal was greeted in the preoperative holding area where the correct side was identified and marked. The consent was reviewed with the patient and signed. The history and physical was updated. All questions were answered. Preoperative medications were administered: Acetaminophen 1000mg, Celebrex 400mg, and Gabapentin 300mg. An adductor canal block was then administered by the anesthesia team in the DSU. He was taken back to the operating room. A spinal anesthestic was then administered. The patient was placed into the supine position on the operating room table. Posts were placed for positioning during the procedure. All bony prominences were well padded. Prophylactic antibiotics in the form of Cefazolin were administered. 1g of Tranxemic Acid was given intravenously within 30 minutes of incision. The right leg was then prepped with Chloraprep and draped in a standard fashion with impervious stockinette. A second prep with Chloraprep was performed prior to application of Iodine impregnated skin protection. A timeout to confirm correct identity, side and site, procedure, allergies, anesthesia, and medical concerns was performed. With the knee in some flexion, a midline incision was made overlying the knee. Full thickness skin flaps were raised once the extensor mechanism was encountered. These were raised medially and laterally. Any bleeding was controlled with electrocautery. Once the extensor mechanism was fully exposed, a medial parapatellar arthrotomy was performed in a flexed position. All bleeding from the arthrotomy and the geniculate arteries was coagulated. A medial subperiosteal peel was performed with electrocautery to the midcoronal plane. The fat pad was removed while keeping the patellar tendon protected. The anterior distal femur synovium was removed for later visualization. The ACL and PCL were resected and the anterior horn of the lateral meniscus was transected. The knee was then flexed with the patella everted. Large osteophytes from the tibia were removed. Large osteophytes from the femur were removed. Using a step drill, and based on preoperative templating, the femoral canal was entered. This was done with a step drill without any difficulty. The intramedullary distal femoral cut guide was inserted, set to a 6 degree valgus cut and 9mm cut thickness. The distal femoral cut guide was then held in position and pinned. With the soft tissues protected, the distal cut was performed. This was passed over a few times to ensure a planar cut. I then turned attention to the tibia. The extramedullary guide was placed onto the leg. The distal aspect was slid medial to adjust for position of center of ankle and stay in line with shaft of the tibia. Approximately 3-5 degrees of posterior slope was kept in the proximal cutting guide. The center of the guide was aligned with the PCL. The stylus was used to assess cut thickness. The lateral side, most involved side, was set for a 4 mm cut. This was then held in position and pinned into place with 2 additional pins and a cross pin for stability. The medial and lateral collateral ligaments were protected and the cut was performed. With this completed, it was assessed and noted to be of appropriate dimensions. The guide was removed. A spacer block was inserted and the knee was brought into extension. The 6mm spacer block provided full extension, without hyperextension and with stability of both the medial and lateral collateral ligaments was assessed. The pins from the femur and the tibia were then removed. The distal femur was then sized. The anterior stylus was placed onto the lateral ridge of the anterior femur. This indicated a size 6 femur. The external rotation of the guide was adjusted to 3 degrees to match the epicondylar axis, perpendicular to Lewis?s line. The 4-in-1 cutting guide was the placed, translated posteriorly 1.5 mm. The posterior medial femur cut was evaluated and appeared of good thickness. The spacer block was inserted underneath the cutting guide and stability was confirmed in 90 degrees of flexion. An seema wing was used to confirm appropriate position of the anterior cut to avoid notching. This cutting guide was ensured to be flush on the cut surface and then pinned into place with headed pins. While protecting the soft tissues, quad tendon, and collateral ligaments, the anterior and posterior cuts were performed with a saw. The central two pins were removed and the posterior and anterior chamfers were cut next. The notch-cutting guide was placed. This was pinned to lateralize the femoral component as much as possible while keeping it flush on the cut surface. This was then pinned into position. A reciprocating saw was used to make the notch cut. A rasp smoothed the cut surfaces. The medial and lateral menisci were removed. A trial femoral component was then inserted, impacted down to the cut surfaces, and the lug holes were drilled. A provisional trial tibial component was placed and the knee was brought through range of motion. There was noted to be excellent extension and flexion. There was no significant instability. The patella was tracking without thumbs. A size 6mm polyethylene component provided the best range of motion and stability with less than 2mm gapping with medial and lateral stress and full extension without significant hyperextension. The tibial cut surface was fully exposed. The tibia was then sized as a 7. The tibia had been previously marked during trialing to correspond to the center of the tibial component to help with rotation. The trial was aligned to this jennifer, approximately rotated to the medial 1/3rd of the tibial tubercle. The trial was pinned into place. The tibia was prepared with a reamer and a keel punch and lug holes. The knee was then brought into extension and the patella was measured as 25mm. Using the patellar clamp and cut guide, this was resected to a flat surface with at least 13mm of thickness remaining. The size 38 patella fit the best. This was oriented and then clamped into position. The lugs were drilled. The trial components were removed. The final components were opened on the back table. The periosteal and capsular tissues, especially posteriorly, around the knee were then systematically injected with a periarticular cocktail consisting of 246mg of Ropivacaine, 0.5mg of Epinephrine, 0.08mg of Clonidine, and 30mg of Ketorolac, diluted to 100cc. On the back table, with the implants opened, the cement was mixed. One batch of high viscosity cement was prepared with vacuum assistance. After the cement was ready a small amount was placed on the cut surface of the patella and the patellar button was clamped into position and held. While the cement was hardening, the cementless knee components were placed. Starting with the tibial component, the tibia was subluxed anteriorly and the lug holes of the component were lined up. The tibia was then impacted with an impactor and mallet until the tibial component was in contact with the tibia. The final polyethylene component was inserted. Then, the femoral component was inserted. The lug holes were aligned and the component was impacted into position. The knee was irrigated with Surgiphor Betadine solution. This was allowed to sit in the knee for 3 minutes and then it was irrigated out with saline. After the cement had finally cured, approximately 15min, the clamp was removed from the patella and the knee was taken through range of motion. The patella was tracking with a no-thumbs technique. The capsule was then reapproximated with a No. 1 Vicryl at multiple locations. The capsule was finally closed with a No. 2 Stratafix, barbed suture. The second dosing of 1g TXA was started. Deep tissues were then reapproximated with 0 Vicryl and 2-0 Vicryl. The skin was closed with a running 3-0 Monocryl in a subcuticular fashion. This was reinforced with skin glue. A Mepilex silver dressing was applied along with a [id number] JEAN CARLOS wrap. A CryoCuff was applied. Krunal was transferred to the hospital bed without difficulty an suffering no apparent complication. Krunal has a good prognosis. Physical therapy will start today and without restrictions, weight-bearing as tolerated. His home dose of apixaban 5 mg twice daily will be used for DVT prophylaxis. Date of Procedure: 03/19/24
--- NOTE | 2024-03-19 16:02 | W.PC.ACHO ---
Registration Status: Primary Language: Preferred Language: Medical / Surgical History (Last Reviewed 03/19/24 @ 10:08 by Lashae Reda RN) Right knee pain Depression Overweight Former smoker Coronary stent restenosis NSTEMI (non-ST elevated myocardial infarction) Most Recent Vital Signs Temperature 36.5 C 03/19/24 16:00 Temperature Source Temporal Artery Scan 03/19/24 16:00 Pulse 75 03/19/24 16:00 Pulse Rhythm Regular 03/19/24 10:06 Pulse 100 H 03/19/24 14:41 Respiratory Rate 16 03/19/24 16:00 Respiratory Depth Normal 03/19/24 15:09 Respiratory Pattern Normal 03/19/24 15:09 Blood Pressure 154/94 H 03/19/24 16:00 Blood Pressure Mean 107 03/19/24 14:41 Blood Pressure Position Sitting 03/19/24 11:15 Pulse Oximetry 96 03/19/24 16:00 Respiratory End-tidal CO2 36 03/19/24 15:02 Oxygen Delivery Method Room Air 03/19/24 16:00 Oxygen Flow Rate 0 03/19/24 16:00 Pain Level 3 03/19/24 15:28 Comment pt arrived med surg from pacu 03/19/24 15:13 Allergies codeine Adverse Reaction (Intermediate, Verified 03/19/24 10:02) Skin Rash Active Medications Generic Name Dose Route Start Last Admin Trade Name Freq PRN Reason Stop Dose Admin Sodium Chloride 1,000 mls @ 30 mls/hr 03/19/24 09:45 03/19/24 14:23 Saline 1000ml Bag IV 04/18/24 09:44 30 mls/hr INFUSION STEFANO Infusion IV IV Catheter Type [Left Wrist] Peripheral IV IV Catheter Gauge [Left Wrist] 20 Diet Orders Category Date Time Status Heart Healthy Eating [DIET] Nutrition 03/19/24 Lunch Active [id number] Documentation Fingerstick Glucose Start: 03/19/24 10:05 Freq: Status: Active Protocol: Activity Type Activity Date Activity User E-sign Co-sign Detail Recorded Client Recorded Date Recorded By Document 03/19/24 13:56 DINORA [id number] 03/19/24 13:59 DINORA Intake and Output - 24 Hour Total 02/13/24 08:47 thru 03/19/24 15:02 Intake Total 660 Output Total 200 Balance 460 Weight 85.4 kg Intake: IV 660 Output: Estimated Blood Loss 200 Other: Emesis Description None Falls Risk Assessment History of Falls No History 03/19/24 15:09 Ambulatory Aids Uses ambulatory device 03/19/24 15:09 Tubes/Lines With any additional score 03/19/24 15:09 Gait Evaluation No gait disturbance 03/19/24 15:09 Cognition No cognitive impairment 03/19/24 15:09 Fall Total Score 35 03/19/24 15:09 Level of Risk Moderate Risk 03/19/24 15:09 v v v v v v v v v Sending and/or Receiving Nurses: Please use comment section below to note any information pertinent to the patient hand-off not included above. Information / Comments: Report received from: Rocio RAMESH in PACU at 1500
--- NOTE | 2024-03-19 17:33 | PT.INIE ---
PT Notes Visit Reasons: Right knee DJD Physical Therapy Day Surgery Initial Evaluation Date: 03/19/2024 Referring Doctor: Dr. Sanchez PT Orders: PT CONSULT: Status post Ortho surgery Precautions: WBAT RLE, activity as tolerated,TEDs x 2 weeks, IV access left upper extremity, standard precautions Patient Profile/Admitting Diagnosis: Patient is 73-year-old male presenting status post elective right TKA secondary to DJD. Patient admitted for further medical management prior to discharge to home PMHX: Right knee pain Depression Former smoker quit 2017 after 50 years ASCVD - RHCoronary stent aqhlkansmi27/27/23 back to [facility] [place] + for NSTEMI again and stent to LAD RHNSTEMI (non-ST elevated --myocardial infarction) -02/13/23 w Stent to LAD 02/14/23 at [facility] [place] RH Lumbar spinal stenosis Lumbar spondylosis Left hip trochanteric bursitis Anemia Bilateral sensorineural hearing loss A-fib HTN HLD DM CKD Social History/Home Situation: Patient resides at home with single-family home with 6 steps to enter with railing. Patient independent ambulation with 4 wheeled walker. Patient utilizes cane on stairs. Patient independent ADLs. Patient drives. assists with cooking cleaning. Equipment Owned/DME: Four-wheel walker, FWW, single-point cane Subjective: Patient reports he feels well and only has some soreness in his right upper thigh. Objective: General Observation: Patient received semireclined in bed with Cryo/Cuff to right knee IV infusing in the left upper extremity. Patient agreeable to participate in evaluation Mental Status: Alert and oriented x 4, pleasant, cooperative Pain: 2/10 right lower extremity Vitals: BP 169/83(nursing aware stated patient able to get out of bed despite this BP) ROM: Right Upper Extremity: WNL Left Upper Extremity: WNL Right Lower Extremity: WNL hip , knee 5?92 degrees, ankle dorsiflexion to neutral with knee extension Left Lower Extremity: WNL Strength: [] Right Upper Extremity: Grossly 4/5 Left Upper Extremity: Grossly 4/5 Right Lower Extremity: Hip flexion 3 -/5, abduction 3 -/5, knee extension 3/5, knee flexion 2+/5 ankle 3/5 Left Lower Extremity: Hip 3+/5, abduction 3/5, knee >3/5, ankle 3/5 Sensation: Intact to light touch denies paresthesias Bed Mobility/Transfers: Supine to sit independent Sit to stand supervision with cues for hand placement to push to stand Stand to sit supervision with cues to reach back Bed to chair CGA with FWW Gait: Patient ambulate 30 feet with FWW CGA level surfaces demonstrating decreased right knee flexion during swing phase, decreased step length bilaterally, early heel off bilaterally, and foot flat at weight acceptance. Stairs to be assessed Balance: Static Sitting: Normal Dynamic Sitting: Good Static Standing: Good with FWW patient with increased weight shift onto left lower extremity Dynamic Standing: Good- with FWW Special Tests: Mobility Limitations Standardized Measure [facility] AM-PAC 6 clicks Basic Mobility Inpatient Short Form: Raw Score: 18 CMS Score: 46.58% Informed Consent/Education: Patient instructed in purpose of PT consult. Packet containing TKA exercise protocol has been given to patient. Education and training on initial set of exercises that can be done at home have been completed with patient. Assessment: Patient is 73-year-old male presenting status post elective right TKA with known cardiac history and spinal stenosis limiting his ability to complete functional tasks independently. Due to these comorbidities patient would benefit from home health PT upon discharge from acute care setting when medically appropriate. Patient presents with clinical signs and symptoms consistent with current/admitting diagnoses that have resulted to mobility limitations, gait instability, generalized weakness, and impairment of motor control as demonstrated by the following impairment level findings: 1. Decreased strength to right knee major muscle groups 2. Impaired standing balance 3. Limitation of joint range of motion in right knee 4. impaired functional activity tolerance and standing Impairments are contributing to the following functional limitations: 1. Inability to safely ambulate without assistive device 2. Increase completion time for mobility ADL performance 3. Increased fall risk 4. Decline in transfer skills 5. Decline in ability to safely perform stairs without assistance Patient is assessed as a moderate complexity based on the following: History: 73-year-old male with impairment level findings, functional limitations, and past medical history as indicated above Examination: Demonstrable impairment in strength, balance, and mobility level with underlying impairments and functional limitations as documented above Presentation: Evolving Decision Making: Moderate Goals: 1. Independent bed mobility 2. Independent transfers with wheeled walker 3. Supervised ambulation with wheeled walker greater than 150 feet on level surfaces 4. Supervision 6 steps with railing cane to safely enter and exit his home 5. Supervised home exercise program with written instructions Plan of Care/Treatment Plan: PT evaluation and 1-2 treatment session only for functional mobility training using recommended AD and for HEP instruction. DISCHARGE RECOMMENDATIONS: PT until able to participate in outpatient PT TREATMENT CODE/TIME: 29474, 28657/ [id number] Thank you for the opportunity to participate in the care of this patient. Peggy Lagunas PT Please sign an return this page within 30 days if you agree with the above POC. Thank you! Physician Signature Date [facility]
[2024-03-19] MEDS: ceFAZolin 1 GM/50 ML BAG IVPB (18:08)
[2024-03-19] MEDS: Gabapentin 100 MG CAP PO (19:47)
[2024-03-19] MEDS: Celecoxib 200 MG CAP PO (19:47)
[2024-03-20] MEDS: ceFAZolin 1 GM/50 ML BAG IVPB ×2 (01:12→08:54)
[2024-03-20] MEDS: Normal Saline Flush 10 ML SYR IV ×2 (01:20→08:54)
[2024-03-20 03:47] VITALS: BP 160/98; PULSE 98; RESP 15; TEMP 37.4; O2SAT 96
[2024-03-20 06:40] VITALS: BP 140/88; PULSE 94; RESP 15; TEMP 36.9; O2SAT 96
[2024-03-20 07:01] LABS: Anion Gap 6.9 mmol/L (3-11); BUN 32 mg/dL (7-18); CO2 27.1 mmol/L (21.0-32.0); Calcium 8.8 mg/dL (8.5-10.1); Chloride 106 mmol/L (98-107); Estimated GFR 34.59 (mL/min/1.73m2); Glucose 122 mg/dL (74-106); Potassium 4.3 mmol/L (3.5-5.1); Sodium 140 mmol/L (136-145)
[2024-03-20 07:24] VITALS: BP 140/76; PULSE 89; RESP 16; TEMP 37; O2SAT 97
[2024-03-20] MEDS: Gabapentin 100 MG CAP PO (08:55)
[2024-03-20] MEDS: Metoprolol CR 50 MG TABCR 100 MG PO (08:55)
[2024-03-20] MEDS: oxyCODONE 5 MG TAB PO ×2 (08:55→12:21)
[2024-03-20] MEDS: Furosemide 20 MG TAB PO (08:56)
[2024-03-20] MEDS: Cholecalciferol (Vitamin D3) 1,000 UNIT TAB 1000 UNITS PO (08:57)
[2024-03-20] MEDS: Atorvastatin 40 MG TAB PO (08:57)
[2024-03-20] MEDS: Acetaminophen 500 MG TAB 1000 MG PO (08:57)
[2024-03-20] MEDS: Pantoprazole 40 MG TABCR PO (08:57)
[2024-03-20] MEDS: Isosorbide Mononitrate 60 MG TABCR 120 MG PO (08:57)
[2024-03-20] MEDS: Dexamethasone 4 MG TAB PO (08:57)
[2024-03-20] MEDS: Celecoxib 200 MG CAP PO (08:57)
[2024-03-20] MEDS: Losartan 25 MG TAB PO (09:18)
[2024-03-20] MEDS: Apixaban 5 MG TAB PO (09:18)
--- NOTE | 2024-03-20 09:59 | PT.INTREAT ---
PT Notes Visit Reasons: Right knee DJD Inpatient Physical Therapy Treatment Note [facility] Date: 03/20/2024 PRECAUTIONS:WBAT RLE, ACTIVITY TOLERATED, TEDS X 2 WEEKS SUBJECTIVE: Pt reports he slept well between interruptions. OBJECTIVE: Patient presents seated in recliner with bilateral lower extremities elevated and Cryo/Cuff to right lower extremity. Patient agreeable to participate in therapy and motivated to return home today ? PAIN: 06/03 RLE Therapeutic Activities ([id number]): Direct one-on-one instruction in dynamic activities to improve functional performance. ? BED MOBILITY/TRANSFERS? Rolling L/R: INDEPENDNET Supine-sit: INDEPENDENT ? Sit-supine: CGA FOR RLE? Sit-stand: SBA? Stand-sit: SBA? Bed-Chair:SBA WITH FWW ? Chair-bed: SBA WITH FWW Provided skilled cues and instruction on performance and technique throughout. Ambulation: Facilitated safe and correct performance of level surface ambulation covering a distance of 200 feet using use front wheeled walker with SBA and wheelchair follow for safety. Did not report of any increased pain. Denied headache, chest pain, and lightheadedness throughout activity. Minimal verbal cueing provided for AD management, directional changes, and posture. [] turning and movement with proper form [] Provided verbal cues for equipment management and technique [] Provided instruction in gait pattern? STAIRS: 6 steps with rail and cane step to pattern SBA ? Therapeutic Exercises ([id number]): Direct one-on-one instruction in therapeutic exercises to develop strength, endurance, range of motion and flexibility. ? Exercises ?Right lower extremity x 10 reps: Quad set, ankle pumps, heel slides, straight leg raise and limited range, hip abduction, long arc quad, stand heel raises ? Patient instructed to perform supine heel slides, SLR, hip abduction with left knee in flexion with foot on the bed to promote lumbar stabilization. ? Provided skilled instruction in proper exercise performance Provided skilled manual cues to facilitate proper muscle recruitment and/or form: [] ASSESSMENT: Patient demonstrating increased upright posture during ambulation as compared to initial eval. Patient demonstrates reciprocal pattern with FWW with cues to increase step length. Patient able to carryover home exercise program after initial instruction in proper technique. Patient demonstrates independence with sequencing on stairs with single-point cane and rail however still requires supervision due to weakness. Patient may need assistance with getting right lower extremity into bed depending on height of bed and level of discomfort in low back. Patient reported no low back pain throughout session and noted his posture to be more upright as compared to prior to surgery when he had to lean on his forearms to ambulate due to low back pain. Patient is safe for discharge to home when medically appropriate with supervision and use of FWW. PLAN: Continue PT until discharged to home TREATMENT CODE/TIME: 28053, [id number] DISCHARGE RECOMMENDATION: Home with PT until able to attend outpatient PT due to transportation
--- NOTE | 2024-03-20 10:27 | DSE_ITS ---
Date of service: 03/20/24 Time of Service: 07:20 DS: Diagnosis Discharge Diagnosis (1) Osteoarthritis of right knee: Status: Resolved Discharge Plan Disposition Patient Disposition: Home W/Home Health Services Condition: Good Discharge Details Reason For Visit: Right knee DJD Admit Date/Time: 03/19/24 07:08 Admit Provider: Raul Sanchez Attending Provider: Raul Sanchez Primary Care Provider: Monster [facility] Hospital Course Hospital Course: Patient was admitted to the medical/surgical floor following the procedure. The surgery was tolerated well without any notable medical, surgical, or anesthetic complications. Mobilization began postoperatively. [He][She] was voiding spontaneously. Vitals were stable. Physical therapy worked with the patient and was cleared for discharge home. No acute medical issues. Pain was controlled on oral regimen. Home Meds and New Rx's Prescriptions: New acetaminophen 500 mg tablet 1,000 mg PO Q8H PRN Qty: 90 0RF Rx Instructions: Take two tablets up to every 8 hours as needed for pain celecoxib [Celebrex] 200 mg capsule 200 mg PO BID PRNQty: 60 0RF Rx Instructions: Take one tablet twice daily for pain and inflammation docusate sodium [Colace] 100 mg capsule 100 mg PO BID Qty: 30 0RF pantoprazole 40 mg tablet,delayed release (DR/EC) 40 mg PO DAILY Qty: 14 0RF dexamethasone 4 mg tablet 4 mg PO DAILY Qty: 2 0RF Rx Instructions: Take one tablet once daily for two days gabapentin 300 mg capsule 300 mg PO QHS Qty: 14 0RF Rx Instructions: Take one tablet at bedtime oxycodone 5 mg tablet 5 mg PO Q6H PRNQty: 24 0RF Rx Instructions: Take one tablet up to every 6 hours as needed for severe postoperative pain Continued atorvastatin 40 mg tablet 40 mg PO DAILY cholecalciferol (vitamin D3) 25 mcg (1,000 unit) capsule 25 mcg PO DAILY Eliquis 5 mg tablet 5 mg PO BID Qty: 180 3RF furosemide 20 mg tablet 20 mg PO DAILY Qty: 90 3RF gabapentin 100 mg capsule 100 mg PO BID cyclobenzaprine 5 mg tablet 5 mg PO BID metoprolol succinate 50 mg tablet extended release 24 hr 100 mg PO DAILY Qty: 180 3RF isosorbide mononitrate 120 mg tablet extended release 24 hr 120 mg PO DAILY Qty: 90 3RF losartan 25 mg tablet 25 mg PO DIRECTED Patient Comments: TAKE ONE TABLET BY MOUTH EVERY DAY Discontinued oxycodone 5 mg tablet 5 mg PO BID PRN Discharge Instructions Additional Instructions: Total Knee Discharge Instructions Activity: The most important activity is to walk and to work on gentle motion (both flexion and extension). You should try to take short walks a few times a day. It is important that when resting you work on keeping the knee straight. Avoid putting a pillow behind the knee as this will encourage flexion. Work on range of motion exercises as provided by Physical Therapy. - Start outpatient physical therapy within 2 weeks. - You should wear the CHRYSTAL hose on both legs for 2 weeks. You may remove these at night. You may also use any compression sock in place of the CHRYSTAL hose. - Utilize [employer] to review exercises, see videos on exercises and obtain basic information pertaining to your surgery and your recovery. Dressing: Remove the Prasanna wrap by 2 days after your surgery and put on the CHRYSTAL stocking given to you from the hospital. Keep the surgical dressing (underneath the PRASANNA wrap) in place for at least one week. After the first week it may be removed and replaced with light gauze and tape or nothing. The wound and dressing may get wet after 3 days but avoid soaking the dressing or otherwise it will need to be changed. Many people prefer covering the dressing with cling wrap (saran wrap) to minimize it from getting soaked. If it gets wet, just pat dry. If it starts to peel off then it will need to be changed. Medications: - You should take Tylenol and anti-inflammatory Celebrex as your primary pain control medications. If the Celebrex is too expensive or not covered, please call the office for another alternative (Advil/Ibuprofen or Naproxen/Aleve) - You have been prescribed a stronger pain medication Oxycodone for breakthrough pain, take as needed as prescribed. - You have also been prescribed a stomach acid reduction agent Pantoprozole to help reduce stomach acid and reflux. - You take Gabapentin at baseline - your bedtime dose has been increased to take 300 mg at night for restlessness and nerve pain. - You will resume your Eliquis for DVT prevention. - You have also been prescribed Decadron to take to control post-operative nausea and pain. You will start this tomorrow. - If you have constipation you should take Colace (which has been prescribed) or Miralax (which is available [id number]). It takes most people 3-4 days to have a bowel movement. Follow-up: 2 weeks If you have any acute concerns or questions, please do not hesitate to contact the office at [phone]. You may contact Dr. Sanchez with any questions after hours through the hospital at [phone] or on his cell phone at [phone]. 1. Encounter Date and Reason I certify that Avtar Elizondo was seen by Raul Sanchez MD on 03/20/24 and that I had a [id number] encounter with this patient that meets the physician face to face encounter requirements. 2. Clinical Findings Supporting Skilled Need and Homebound Status I certify that home health services are medically necessary, include either intermittent detention and/or physical/speech therapy, and that this patient is homebound in that absences from the home require considerable and ta malu effort and are infrequent or of short duration, or are attributable to the need to receive medical care. [X] (a) Attached documentation from encounter provides clinical findings supporting skilled need and homebound status (including what assistance patient requires to leave the home). The encounter with the patient was in whole, or in part, for the following medical condition, which is the primary reason for home health care: Right knee DJD Fdc: Physical Therapy: Krunal is a 73-year-old male who would benefit from physical therapy at home due to his notable deconditioning and recent total knee replacement surgery. He has weakness and gait abnormalities due to his recent surgery and prolonged weakness with previous OK. He has no weightbearing restrictions. He has no positioning restrictions. Initial physical therapy focused on range of motion and independent functioning within his home. Speech Therapy: Homebound: Krnual is unable to leave his home unassisted due to weakness and gait abnormalities. 3. Certification and Authentication I certify that I composed the above information based on my clinical judgement relating to this patient's medical condition and, if applicable, clinical findings communicated to me by the NPP or inpatient physician who performed the Home Health Referral. All further orders will be obtained through Dr. Sanchez Referrals: Raul Sanchez MD [ [facility] STAFF PHYSICIAN] - Activity:: Activity as Tolerated Equipment/Supplies:: Walker Diet:: As Tolerated Discharge Orders Discharge Orders: Discharge Order (Routine); Ordered 03/20/24 Ordered By: Raul Sanchez DS: Summary Time Spent with Patient providing and/or coordinating discharge services: Less than 30 minutes Status at Discharge Functional status at discharge: uses cane/walker Overall status at discharge: patient is progressing back to baseline Mental Status: mental status grossly normal Speech and Movement: speech and movement normal Mood: congruent mood Affect: normal affect Quality:SDOH Health Related Social Needs: No Data to Display Exam Narrative Exam Narrative: Sitting up in the bed. NAD. AAOx3. RLE dressing c/d/i. +ADF/APF/EHL/FHL SILT DP/SP/Tib Psych Mental Status: mental status grossly normal Speech and Movement: speech and movement normal Mood: congruent mood Affect: normal affect DS: Data Vitals/I&O Vitals and I&O: Vital Signs Temperature 37.0 C 03/20/24 07:24 Temperature Source Tympanic 03/20/24 07:24 Pulse 89 03/20/24 07:24 Pulse Rhythm Regular 03/19/24 10:06 Pulse 100 H 03/19/24 14:41 Respiratory Rate 16 03/20/24 07:24 Respiratory Depth Normal 03/19/24 15:09 Respiratory Pattern Normal 03/19/24 15:09 Blood Pressure 140/76 03/20/24 07:24 Blood Pressure Mean 107 03/19/24 14:41 Blood Pressure Position Sitting 03/19/24 11:15 Pulse Oximetry 97 03/20/24 07:24 Respiratory End-tidal CO2 36 03/19/24 15:02 Oxygen Delivery Method Room Air 03/20/24 07:24 Oxygen Flow Rate 0 03/20/24 07:24 Pain Level 7 03/20/24 08:57 Comment pt arrived med surg from pacu 03/19/24 15:13 Intake & Output 03/19/24 03/19/24 03/20/24 11:59 23:59 11:59 Intake Total 983.5 / 983.5 50 / 50 Output Total 1200 / 1200 Balance -216.5 / -216.5 50 / 50 Weight 85.4 kg 85.4 kg Intake: IV 883.5 / 883.5 50 / 50 Oral 100 / 100 Output: Urine 1000 / 1000 Estimated Blood Loss 200 / 200 Other: Urine Color Yellow Yellow Urine Appearance Clear Clear Urine Odor Normal Emesis Description None Data Completed and Pending Labs on day of discharge: Labs from last 24 hours 03/20/24 06:20 Sodium 140 Potassium 4.3 Chloride 106 Carbon Dioxide 27.1 Anion Gap 6.9 BUN 32 H Creatinine 2.0 H Est GFR (CKD-EPI 2020) 34.59 Glucose 122 H Calcium 8.8 PFSH All Active Problems History of total right knee replacement (Acute 03/19/24) Lumbar spinal stenosis (Acute) Lumbar spondylosis (Acute) Trochanteric bursitis of left hip (Acute) Anemia (Chronic) Sensorineural hearing loss (SNHL) of both ears (Acute) Atrial fibrillation, chronic (Acute) HTN (hypertension) with goal to be determined (Acute) HLD (hyperlipidemia) (Acute) Diabetes mellitus (Chronic) Diet controlled CKD (chronic kidney disease) (Chronic) ASCVD (arteriosclerotic cardiovascular disease) (Acute) Hx DAVIAN 2013 RH Allergic rhinitis due to allergen (Acute) Sinusitis, maxillary, chronic (Acute) Medical History Right knee pain Depression Overweight Former smoker quit 2017 after 50 years RH Coronary stent restenosis 02/17/23 back to [facility] [place] with [place] + for NSTEMI again and stent to LAD RH NSTEMI (non-ST elevated myocardial infarction) 02/13/23 w Stent to LAD 02/14/23 at [facility] Social History Smoking/Tobacco Use Status: Former Tobacco Use Quit Date: 04/24/16 Smoking risk assessment performed?: Yes Alcohol Intake: current Alcohol Intake frequency: a few times a week Alcohol type: beer Drug use: Never Substance use type: does not use Housing: house Current gender identity: male Additional [facility] history[facility] Time Spent with Patient Time Spent with Patient: <45 minutes Time was spent: preparing to see the patient(eg.review tests)
[2024-03-20 11:03] VITALS: BP 123/78; PULSE 92; RESP 16; TEMP 36.9; O2SAT 98
--- NOTE | 2024-03-20 11:57 | INITIAL_ITS ---
Date of service: 03/20/24 Time of Service: 11:57 Care Management Initial Assmt Initial Assessment Reason for Hospitalization: Right Knee Replacement Functional Status/Living Situation Patient Presentation: Krunal was sitting up in his chair when CM met with him. He was pleasant and engaged well in conversation. He stated that he and his live in [place], and that he is independent at baseline in the community. He mentioned that per MD, he will have HH PT for a couple of weeks prior to him transitioning to outpatient PT, if possible. He is agreeable with this plan, and is happy to be discharging home today. He stated that he and his don't have big plans for Thanksgiving, and he will be taking it easy while recovering from surgery. CM will continue to follow. Town of Residence: [place] Resides with: Spouse Natural Supports: , Asmita Employment Status: Retired Instrumental Activities of Daily Living (ADLs): Independent Medications Medication Management: No Issues/Barriers identified Physical Functioning/Mobility Assistive Device: 4WW, FWW, SPC Advance Directives Advance Directives: Do you have an Advance Directive: N 02/16/24 13:51 AD On File at [facility]: N 02/16/24 13:51 Date Asked 03/04/24 03/04/24 11:23 AD Date Reviewed COLST On File at [facility] COLST Date Scanned Code Status Resuscitation Status Full Code Insurance Coverage/Financial Issues Insurance: [facility] Care Team Visit Care Team Role Provider Type Monster Clark Primary Care Provider OSTEOPATHIC DOCTOR InPatient Talat Cherry Other Providers OTHER Raul Sanchez MD Admit Provider [facility] STAFF PHYSICIAN Attending Provider Discharge Potential Discharge Needs: Surgical F/U Appt Anticipated Barriers to Discharge: None Identified Patient/Family Education Needs: Review discharge instructions, discuss Ask Me Three Transportation: Private vehicle Plan: Anticipate Krunal will return home today with new orders for HH PT. His will drive him home via private vehicle. He will follow up with Ortho and discharge plan of care. CM will continue to follow. PFSH All Active Problems History of total right knee replacement (Acute 03/19/24) Lumbar spinal stenosis (Acute) Lumbar spondylosis (Acute) Trochanteric bursitis of left hip (Acute) Anemia (Chronic) Sensorineural hearing loss (SNHL) of both ears (Acute) Atrial fibrillation, chronic (Acute) HTN (hypertension) with goal to be determined (Acute) HLD (hyperlipidemia) (Acute) Diabetes mellitus (Chronic) Diet controlled CKD (chronic kidney disease) (Chronic) ASCVD (arteriosclerotic cardiovascular disease) (Acute) Hx DAVIAN 2013 [facility] Allergic rhinitis due to allergen (Acute) Sinusitis, maxillary, chronic (Acute) Medical History Right knee pain Depression Overweight Former smoker quit 2017 after 50 years RH Coronary stent restenosis 02/17/23 back to [facility] with cp + for NSTEMI again and stent to LAD RH NSTEMI (non-ST elevated myocardial infarction) 02/13/23 w Stent to LAD 02/14/23 at [facility] RH Social History Smoking/Tobacco Use Status: Former Tobacco Use Quit Date: 04/24/16 Smoking risk assessment performed?: Yes Alcohol Intake: current Alcohol Intake frequency: a few times a week Alcohol type: beer Drug use: Never Substance use type: does not use Housing: house Current gender identity: male Additional Social history: [facility] SDOH(Care Management) Screening Will the Patient Participate in the Screening?: Yes Do you worry about having a steady place to live?: yes In the past 12 months, have you had to go without electric, gas, oil or water in your home?: no Have you or anyone in your house had to go without enough food to eat?: no Has lack of transportation kept you from medical appointments or from doing things needed for daily living?: no Has anyone in your support network made you feel unsafe for any reason?: no Health Related Social Needs Health related social needs: housing instability, housed, with risk of homelessness(Z59.811)
--- NOTE | 2024-03-20 12:17 | CMDISCH_ITS ---
Date of service: 03/20/24 Time of Service: 12:17 LACE Index Scoring Tool Questions: Length of Stay (in days): 1 Was the patient admitted via the E.D.?: No Comorbidities: Diabetes w/o Complication and Liver or Renal Disease E.D. Visits: 0 Answers: Total Score: 6 Risk of Readmission: Low Risk Care Management Discharge Plan Reason for Hospitalization: Right Knee DJD Discharge Plan: Avtar will return home today with new orders for HH PT. His will drive him home via private. He will follow up with Ortho and his discharge plan of care. He is happy to be going home. Patient/Family Education Needs: Review discharge instructions and limitations, discussion of self care needs including ask me three. Services Needed at Discharge: Home Health Care Services (HH PT, O/E VNA) SDOH Health Related Social Needs: Health related social needs housing instability, house d, with risk of homelessness(Z59.811) Health related social needs: housing instability, housed, with risk of homelessness(Z59.811)
--- NOTE | 2024-03-20 13:48 | CHAPLAIN ---
I visited with Krunal this morning. He was discharged a bit later. He was here for a knee replacement. Krunal thanked me for visited, and said he okay. When I asked if I could get him anything, he said world peace. He added that there has been some progress made in the cease fire negotiations in the [place] and that's made him more helpful. He lives in [place] with his .
== END 2024-03-20 12:29 | disposition home health service (06) ==
LOC: SUR 15:31 → MS 15:32
PROVIDERS: Admitting Provider Student in an Organized Health Care Education/Training Program; PCP Neuromusculoskeletal Medicine & OMM; Visit Provider Student in an Organized Health Care Education/Training Program
PROC: (CPT 27447; principal; 2024-03-19 12:30)
DX: M17.11 Unilateral primary osteoarthritis, right knee (principal); I48.20 Chronic atrial fibrillation, unspecified; Z79.01 Long term (current) use of anticoagulants; I25.10 Atherosclerotic heart disease of native coronary artery without angina pectoris; E11.22 Type 2 diabetes mellitus with diabetic chronic kidney disease; N18.9 Chronic kidney disease, unspecified; I12.9 Hypertensive chronic kidney disease with stage 1 through stage 4 chronic kidney disease, or unspecified chronic kidney disease; E78.5 Hyperlipidemia, unspecified; D64.9 Anemia, unspecified
CPT/HCPCS: 27447; 36415; 80048; 96365; 96366; 97110; 97162; 97530; C1776; G0378; J0665; J0690; J1100; J1805; J2405; J2704; J3475; J8540

== ENCOUNTER 2024-04-01 15:33 | Outpatient (CLI) | payer MEDICARE, SELFPAY ==
--- NOTE | 2024-04-01 12:05 | DI.RAD_ITS ---
Exam(s) XR KNEE RT 2V AP,LAT XR STANDING ALIGNMENT EXAM: XR STANDING ALIGNMENT CLINICAL HISTORY: 1ST POST OP S/P R TKA. TECHNIQUE: 2D digital imaging was performed. Standing AP views were performed from the pelvis throu gh the ankles. AP and lateral views of the right knee. COMPARISON: CR XR STANDING ALIGNMENT from 03/07/2024 CR XR KNEE RT 2V AP,LAT from 04/01/2024 FINDINGS: BONES: No acute fracture is present. No bony destructive lesion is seen. Leg length discrepancy: No significant overall leg length discrepancy. JOINTS: Knees: Status post placement of right knee prosthesis. The alignment appears satisfactory. There are degenerative changes in the lateral femoral tibial joint space of the left knee. Ankles: The left ankle shows mild degenerative changes. The right ankle shows pronation and some maria alejandra rowing of the lateral aspect of the tibiotalar joint. The hip joints show mild degenerative changes. SOFT TISSUE: Bilateral lower extremity edema, right greater than left. Soft tissue calcifications ar e present in the left lower leg. IMPRESSION: Status post placement of right total knee prosthesis. Degenerative changes of the lateral femoral ti bial joint space of the left knee.. No significant leg length discrepancy. DATA REPOSITORY: RADIATION DOSE DELIVERED:
== END 2024-04-01 15:34 | disposition home or self-care (01) ==
LOC: DIORS 15:34
PROVIDERS: PCP Neuromusculoskeletal Medicine & OMM; Referring Provider Neuromusculoskeletal Medicine & OMM; Visit Provider Student in an Organized Health Care Education/Training Program
DX: Z96.651 Presence of right artificial knee joint (principal); Z47.1 Aftercare following joint replacement surgery
CPT/HCPCS: 99024; 73560; 77073

== ENCOUNTER → 2024-04-29 14:33 | Outpatient (BNVA) | payer MEDICARE, SELFPAY | PROVIDERS: PCP Neuromusculoskeletal Medicine & OMM; Referring Provider Neuromusculoskeletal Medicine & OMM; Visit Provider Student in an Organized Health Care Education/Training Program | DX: Z47.1 Aftercare following joint replacement surgery (principal); Z96.651 Presence of right artificial knee joint | CPT/HCPCS: 99024 ==

== ENCOUNTER 2024-05-13 09:39 | Outpatient (CLI) | payer MEDICARE, SELFPAY ==
--- NOTE | 2024-05-13 06:45 | DI.RAD_ITS ---
Exam(s) XR PAIN CLINIC LUMBAR SP 2V EXAM: XR PAIN CLINIC LUMBAR SP 2V CLINICAL HISTORY: Dx: Lumbar Radiculopathy. TECHNIQUE: Fluoroscopy was provided for the referring physician for guidance with performing pain cl inic injection procedure. COMPARISON: No exams were available for comparison FINDINGS: Please see procedure note for details. Fluoro time: 23.7 seconds RADIATION DOSE DELIVERED: Ka,r=5.92 mGy
[2024-05-13 09:49] VITALS: BP 151/89; PULSE 81; RESP 18; TEMP 36.2; O2SAT 98
--- NOTE | 2024-05-13 10:00 | PDOC.PAIN ---
Date of service: 05/13/24 Time of Service: 10:37 Pain Managment Procedure Note Procedure Note Procedure Note: Lumbar Interlaminar Epidural Steroid Injection ? Location: L5-S1 ? Pre-procedure Diagnosis: M54.16- Radiculopathy, LUMBAR region ? Post-procedure Diagnosis:? The same as above ? Sedation:? ? None ? Medication: Depo-Medrol 80 mg, Omnipaque 1 mL ? Estimated blood loss:? less than 2 cc ? Surgeon:? Geraldo Machuca MD COMMENT: Eliquis held 3 days and aspirin held 4 days. Good relief from previous epidural steroid injection in November 2023. Patient has severe spinal stenosis at L3-4 ? Procedure Detail:? The procedure and potential risks were explained to the patient and informed written consent was obtained. The patient was escorted to the procedure room and placed in the prone position. Pillows were utilized for proper positioning and comfort. Time out was performed in the procedure room with nursing staff confirming the patient's identity, procedure to be performed, allergies, and any blood thinning or anti-platelet medications.? The patient's neck and upper back was prepped with ChloraPrep and draped in a sterile fashion. Sterile technique was maintained throughout the procedure.? Sterile gloves were used, a face mask was worn, and new single dose vials of all medications were used with the top being swabbed with alcohol and given time to dry prior to withdrawal of medication. Lidocane 1% was used to anesthetize the skin.Using a 25-gauge 1.5 inch needle, 1% lidocaine was instilled into the superficial soft tissue overlying the targeted area to provide local anesthesia. With fluoroscopic guidance, a 17 -gauge Tuohy needle was advanced toward the interlaminar space of L5-S1. The needle was then advance through the ligamentum flavum and into the posterior epidural space using the loss of resistance technique. Correct needle placement was confirmed through review of the AP and contralateral oblique fluoroscopic views. A 19-gauge arrow catheter was threaded slightly cephalad Following negative aspiration, one cc of Omnipaque 240 contrast was injected which confirmed good flow throughout the epidural space and no evidence of vascular flow or flow into adjacent compartments. Next, following negative aspiration, 1 cc's of normal saline and 80mg of Depo-Medrol was injected. The needle was gently removed. The patient tolerated the procedure well and was transported to the recovery area for observation and discharge instructions. Permanent images saved and recorded. PAIN PRE-PROCEDURE 12/01 POST-PROCEDURE 08/31 Plan:? Follow up prn. COMMENT: Could repeat as needed. Consider repeating at L4-5. Consider surgical evaluation for his stenosis at L3-4. Consider medial branch blocks and radiofrequency ablation. Consider intra-articular facet injections at L3-4 4 fluid-filled facet joints
[2024-05-13 10:18] VITALS: O2SAT 97
[2024-05-13 10:20] VITALS: O2SAT 99
[2024-05-13] MEDS: Omnipaque 240 MG/ML 50 ML BTL IJ (10:37)
[2024-05-13] MEDS: Epidural Tray 1 EACH MC (10:37)
[2024-05-13] MEDS: methylPREDNISolone ACETATE 40 MG/ML VIAL IJ (10:37)
== END 2024-05-13 09:40 | disposition home or self-care (01) ==
LOC: PC 09:39
PROVIDERS: PCP Neuromusculoskeletal Medicine & OMM; Visit Provider Anesthesiology Pain Medicine
DX: M54.50 Low back pain, unspecified (principal); M54.16 Radiculopathy, lumbar region
CPT/HCPCS: 00123; 62323; 72100; J1010; Q9967

== ENCOUNTER → 2024-06-17 10:08 | Outpatient (BNVA) | payer MEDICARE, SELFPAY | PROVIDERS: PCP Neuromusculoskeletal Medicine & OMM; Referring Provider Neuromusculoskeletal Medicine & OMM | DX: Z47.1 Aftercare following joint replacement surgery (principal); Z96.651 Presence of right artificial knee joint | CPT/HCPCS: 99024 ==

== ENCOUNTER 2024-07-18 10:36 | Outpatient (CLI) | payer MEDICARE, SELFPAY ==
--- NOTE | 2024-07-18 10:30 | RT.EKG_ITS ---
APPROVED REPORT Exam: Resting ECG Reason for Exam: afib Patient Location: O HR:95 bpm ECG Measurements Heart Rate 95 AXIS NC [id number] P [id number] QRSd 108 QRS -67 QT 370 T 35 QTc 465 Conclusion Atrial fibrillation...V-rate 68-119, irreg A-activity LAFB...axis(240,-40), S>R II III aVF
== END 2024-07-18 10:37 | disposition home or self-care (01) ==
LOC: DI.CARD 10:36
PROVIDERS: PCP Neuromusculoskeletal Medicine & OMM; Visit Provider Internal Medicine Cardiovascular Disease
DX: I25.10 Atherosclerotic heart disease of native coronary artery without angina pectoris (principal)
CPT/HCPCS: 93010

== ENCOUNTER → 2024-07-18 11:12 | Outpatient (BNVA) | payer MEDICARE, SELFPAY | PROVIDERS: PCP Neuromusculoskeletal Medicine & OMM; Referring Provider Neuromusculoskeletal Medicine & OMM; Visit Provider Internal Medicine Cardiovascular Disease | DX: I48.20 Chronic atrial fibrillation, unspecified (principal); I25.10 Atherosclerotic heart disease of native coronary artery without angina pectoris | CPT/HCPCS: 93005; 99214 ==

== ENCOUNTER 2024-08-22 13:58 | Outpatient (CLI) | payer MEDICARE, SELFPAY ==
--- NOTE | 2024-08-22 | DI.MRI_ITS ---
Exam(s) MR LUMBAR SPINE WO/W EXAM: MR LUMBAR SPINE WO/W CLINICAL HISTORY: Lumbar radiculopathy, M54.16; L3-4 laminotomies/decompression 08/12/24;. TECHNIQUE: Multiplanar multisequence MRI of the Lumbar Spine was performed. Additional pre and post gadolinium fat suppressed T1 sagittal and axial sequences were performed. CONTRAST MATERIAL: IV Contrast: 15 mL of Dotarem contrast administered. COMPARISON: CR XR KNEE RT 2V AP,LAT from 04/01/2024 MR MR LS SPINE WO CONTRAST from 06/20/2024 FINDINGS: Bones: The last intervertebral disc space is designated the L5/S1 level for the numbering purpose of this examination. There is a rudimentary disc at S1-2. The vertebral body heights are well maintained. Levoscoliosis again noted. The signal characteristics are unremarkable. Cord: The conus tip ends at the T12 L1 level. It is of normal size and signal intensity. T12-L1: No disc herniations or bulges are present. No central spinal canal or neural foraminal stenos is. L1-2: Mild disc bulging eccentric toward the left. No central spinal canal stenosis. Bilateral mode rate neural foraminal narrowing. L2-3: Loss of disc height eccentric toward the right where there are endplate osteophytes. Mild face t degenerative changes. Severe right neural foraminal narrowing. No significant central canal steno sis. L3-4: Disc bulging. Intermediate T1 and low T2 signal material noted posterior to the L3 vertebral b sam, eccentric toward the right, consistent with disc herniation with superior extrusion of disc mate rial. This causes moderate to severe central canal stenosis. There is [id number] bilateral neur al foraminal narrowing. Laminectomy defect noted at this level. Some postsurgical scarring at the p osterior canal. Postsurgical fluid collection noted extending from level of skin to the level of shabbir tral canal with inferior extension to the level of the posterior elements of L5. Some surrounding en hancement in the surrounding soft tissues. L4-5: Mild disc bulging. Mild facet degenerative changes. Left and mild right neural foraminal narr owing. No significant central canal stenosis. L5-S1: Severe loss of disc height. Endplate osteophytes. Severe left neural foraminal narrowing and mild right neural foraminal narrowing. No significant central canal stenosis. The visualized SI joints and sacrum are well maintained. Soft tissues: The paraspinal soft tissues are unremarkable. There is no evidence of suspicious enhancement. IMPRESSION: Status post laminectomy at the L3 level. Postsurgical at this level without definite evidence of abs cess. Large right-sided disc herniation at the L3-4 level with superior extrusion of disc material at post erior to the L3 vertebral body. This causes moderate to severe central canal stenosis. Multilevel degenerate disc changes and facet degenerative changes causing bilateral neural foraminal narrowing without significant change from prior. DATA REPOSITORY:
[2024-08-22] MEDS: Gadoterate meglumine 20 ML SYRINGE 15 ML IVP (15:27)
[2024-08-22] MEDS: Normal Saline Flush 10 ML SYR IVP (15:27)
== END 2024-08-22 14:18 ==
LOC: DI 14:00
PROVIDERS: PCP Neuromusculoskeletal Medicine & OMM; Visit Provider Internal Medicine
DX: M54.16 Radiculopathy, lumbar region (principal); M51.26 Other intervertebral disc displacement, lumbar region; M48.02 Spinal stenosis, cervical region
CPT/HCPCS: 72158

== ENCOUNTER → 2025-01-16 09:47 | Outpatient (BNVA) | payer MEDICARE, SELFPAY | PROVIDERS: PCP Neuromusculoskeletal Medicine & OMM; Visit Provider Internal Medicine Cardiovascular Disease | DX: I48.20 Chronic atrial fibrillation, unspecified (principal); I25.10 Atherosclerotic heart disease of native coronary artery without angina pectoris | CPT/HCPCS: 99213 ==

== ENCOUNTER 2025-03-24 12:58 | Outpatient (CLI) | payer MEDICARE, SELFPAY ==
--- NOTE | 2025-03-24 10:15 | DI.RAD_ITS ---
Exam(s) XR KNEE RT 2V AP,LAT EXAM: XR KNEE RT 2V AP,LAT CLINICAL HISTORY: ANNUAL F/U R TKA. TECHNIQUE: 2D digital imaging was performed. Two images were obtained. AP and lateral views were obtained. COMPARISON: CR XR KNEE RT 2V AP,LAT from 04/01/2024 CR XR STANDING ALIGNMENT from 04/01/2024 FINDINGS: BONES: There are stable post operative changes of a right total knee arthroplasty present. No fracture or dislocation. JOINTS: The orthopedic hardware is in good position. No evidence of hardware loosening. SOFT TISSUE: Atherosclerotic calcification is present. IMPRESSION: Stable right total knee arthroplasty. DATA REPOSITORY: RADIATION DOSE DELIVERED:
== END 2025-03-24 12:59 | disposition home or self-care (01) ==
LOC: DIORS 12:58
PROVIDERS: PCP Neuromusculoskeletal Medicine & OMM; Visit Provider Student in an Organized Health Care Education/Training Program
DX: Z47.1 Aftercare following joint replacement surgery (principal); Z96.651 Presence of right artificial knee joint
CPT/HCPCS: 99212; 73560